=== PATIENT | female | born 1990 | race Caucasian/White ===

== ENCOUNTER 2019-08-11 17:00 | Emergency (ER) | payer OTHER ==
[~2019-08-11] VITALS: Ht 167.6 cm; Wt 54.4 kg
[2019-08-11] MEDS ORDERED: XANAX 0.5 MG0.5 MG PO (17:10)
[2019-08-11] MEDS ORDERED: ADDERALL 10 MG10 MG PO (17:10)
[2019-08-11] MEDS ORDERED: CELEXA10 MG PO (17:10)
[2019-08-11] MEDS ORDERED: CIPROFLOXIN HC2.5 M1 OTIC (17:58)
[2019-08-11 18:58] VITALS: BP 100/67
== END 2019-08-11 18:59 | disposition home or self-care (01) ==
LOC: M.ERS 17:00
DX: S05.01XA Injury of conjunctiva and corneal abrasion without foreign body, right eye, initial encounter (principal); F41.9 Anxiety disorder, unspecified; F32.9 Major depressive disorder, single episode, unspecified; X58.XXXA Exposure to other specified factors, initial encounter; Y93.89 Activity, other specified; Y92.89 Other specified places as the place of occurrence of the external cause; Y99.8 Other external cause status